=== PATIENT | male | born 1940 | race Caucasian/White ===

== ENCOUNTER 2016-09-28 10:40 | Emergency (ER) | payer MEDICARE, OTHER ==
[2016-09-28 11:38] LABS: Hematocrit 46.8 % (42.0-52.0); Mean Cell Volume 92.9 fl (78-100); Mean Corpuscular Hemoglobin 31.7 pg (27-31); Mean Corpuscular Hgb Conc 34.2 g/dl (32-36); Mean Platelet Volume 10.1 fl (6.0-9.5); Neutrophil # 3.2 K/mm3 (1.3-6.0); Neutrophil % 54.9 % (42-75.0); Platelet Count 154 K/mm3 (150-450); Red Blood Count 5.04 M/mm3 (4.7-6.0); Red Cell Distribution Width 13.7 % (11.5-14.0); White Blood Count 5.8 K/mm3 (4.0-10.5)
[2016-09-28 11:45] LABS: Anion Gap 11.1 mmol/L (6.8-13.8); BUN/Creatinine Ratio 16.7 (9.0-21.6); Calcium * 8.5 mg/dL (7.9-10.9); Carbon Dioxide 27.2 mmol/L (24-32.6); Estimated Creat Clear 69.8; Potassium 4.3 mmol/L (3.4-4.6)
[2016-09-28 11:47] LABS: Prothrombin Time (Patient) 10.7 Seconds (9.4-11.4)
[2016-09-28] MEDS ORDERED: ATORVASTATIN CALCIUM 40 MG TABLET PO ONE (11:47)
[2016-09-28] MEDS ORDERED: ASPIRIN 81 MG TAB.CHEW PO ONE (11:47)
--- NOTE | 2016-09-28 11:47 | ERNOTE ---
Medical Problem HPI - Narrative Date of Service: 09/28/16 - General Chief Complaint: General Assessment Time Seen by Provider: 09/28/16 11:06 Source: patient, family Exam Limitations: no limitations - Immun/Allergies/Home Medications Immunizations: IMMUNIZATION HX History of Influenza Vaccine No Hx Pneumococcal Vaccination No Allergies/Adverse Reactions: Allergies No Known Allergies Allergy (Unverified 09/28/16 11:02) Home Medications: HOME MEDICATIONS Intolerant Of Lipitor 1 unit PO DAILY 365 Days 09/28/16 [Last Taken Unknown] Simvastatin [Zocor] 40 mg PO HS #30 tab 09/28/16 [Last Taken Unknown] - History of Present History Narrative: numb left face arm leg started 45 minutes prior to coming to the [facility] ER by private vehicle. Gone now, except for slight numbness in left foot. given aspirin here and Lipitor. Previous CABG. Timing: other - almost resolved. Severity: mild, moderate Modifying Factors - (Improves): Present: other - time Modifying Factors - (Worsens): Present: other - nothing Review of Systems - Review of Systems Constitutional: Present: no symptoms reported EYE: Present: no symptoms reported ENT: Present: no symptoms reported Respiratory: Present: no symptoms reported Cardiology: Present: no symptoms reported Gastrointestinal/Abdominal: Present: no symptoms reported Genitourinary: Present: no symptoms reported Musculoskeletal: Present: no symptoms reported Skin: Present: no symptoms reported Neurological: Present: See HPI Endocrine: Present: no symptoms reported Hematologic/Lymphatic: Present: no symptoms reported Psych: Present: no symptoms reported All Other Systems: All systems neg except as marked - Patient's Past Medical History Patient History - Medical: No pertinent hx Patient History - Cardiac/Respiratory: Coronary Heart Disease, Hyperlipidemia, TIA Patient History - Cancer: No Hx of Cancer Patient History - Surgical Procedures: Coronary Bypass Surgery - Social History Living Situations: home Alcohol Use: occasionally Drug Use: none Physical Exam - Physical Exam General Appearance: Present: wd/wn, alert, no apparent distress Eye Exam: Normal inspection: bilateral, PERRL: bilateral, EOMI: bilateral Ears, Nose, Throat: Present: normal ENT inspection, hearing grossly normal Neck: Present: normal inspection, supple Respiratory: Present: no respiratory distress, normal breath sounds Cardiovascular/Chest: Present: regular rate, rhythm, no murmur Gastrointestinal/Abdominal: Present: normal bowel sounds, nontender, nondistended, soft, no organomegaly Back Exam: Present: normal inspection Extremity Exam: Present: normal inspection, no edema Neurological Exam: Present: alert, oriented, normal mood/affect, no motor/ sensory deficits Skin Exam: Present: normal color, warm/dry ED Progress - Results and Orders Patient's Lab Results:: I have reviewed the patient's lab results. - Vital Signs Patient's Vital Signs:: I have reviewed the patient's vital signs. Vital Signs: Vital Signs 09/28/16 09/28/16 09/28/16 10:56 11:22 11:35 Temperature 36.3 C L Pulse Rate 52 L 54 L 52 L Respiratory 12 12 12 Rate Blood Pressure 134/60 139/71 142/81 O2 Sat by Pulse 96 98 95 Oximetry - EKG EKG read: Interp. by me - sinus bradycardia, non acute. - CT/Ultrasound CT/Ultrasound Narrative: I spoke with Dr. Viramontes about his head CT, non acute, old lacunar infarct. - Progress/Reassessment Chief Complaint: General Assessment Progress:: Improved Departure - Departure Clinical Impression: TIA (transient ischemic attack) Qualifiers: Transient cerebral ischemia type: carotid artery syndrome (hemispheric) Qualified Code(s): G45.1 - Carotid artery syndrome (hemispheric) Disposition: Home self-care Condition: Good Instructions: Transient Ischemic Attack, [id number] Additional Instructions: Take aspirin every day. One 325 mg aspirin is enough, but since you feel physically better taking more, you may take up to 4 daily. Take simvastatin every day, don't stop it. See your health care provider next week. Prescriptions: Intolerant Of Lipitor 1 unit PO DAILY 365 Days Simvastatin [Zocor] 40 mg PO HS #30 tab
[2016-09-28 11:48] LABS: INR 1.03 INR (0.90-1.10)
[2016-09-28] MEDS ORDERED: ASPIRIN 81 MG TAB.CHEW ONE (11:50)
[2016-09-28] MEDS ORDERED: ATORVASTATIN CALCIUM 40 MG TABLET ONE (11:50)
[2016-09-28 13:32] VITALS: BP 147/72
== END 2016-09-28 13:46 | disposition home or self-care (01) ==
LOC: ER 10:40
DX: G45.1 Carotid artery syndrome (hemispheric) (principal); Z95.1 Presence of aortocoronary bypass graft